=== PATIENT | male | born 1980 | race American Indian/Alaskan Native ===

== ENCOUNTER 2019-04-15 13:25 | Emergency (ER) | payer SELFPAY ==
[2019-04-15] MEDS ORDERED: BABY ASPIRIN PO ONE (14:13)
--- NOTE | 2019-04-15 14:38 | Emergency Department Report ---
ED Chest Pain HPI - General Chief Complaint: Chest Pain Stated Complaint: CHEST PAIN Time Seen by Provider: 04/15/19 14:30 Source: patient, EMS Mode of arrival: Stretcher Limitations: No Limitations - History of Present Illness Initial Comments: Patient is a 38 years old male with history of hypertension, diabetes and substance abuse. Patient presented to the ER complaining of left sided chest pain, pressure and tightness with no radiation. Patient stated that pain started 4 hours ago after he used cocaine approximately 4 hours ago. Patient also complaining of generalized weakness after he used cocaine. Patient denied any shortness of breath, fever or chills. MD Complaint: chest pain -: hour(s) Onset: during rest Pain Location: left chest Pain Radiation: none Severity scale (0 -10): 8 Quality: tightness, heaviness Consistency: constant - Related Data Home Medications Medication Instructions Recorded Confirmed Last Taken Metformin HCl [Glucophage] 1,000 mg PO BID 03/01/16 04/16/19 Unknown Previous Rx's Medication Instructions Recorded Last Taken Type Amoxicillin [Amoxicillin TAB] 875 mg PO BID 10 Days #20 tablet 05/18/18 Unknown Rx Butalb/Acetamin/Caff 50-325-40 1 tab PO Q6HR PRN #10 tab 05/18/18 Unknown Rx [Fioricet] Lisinopril [Zestril] 10 mg PO QDAY #30 tablet 05/18/18 Unknown Rx Allergies Allergy/AdvReac Type Severity Reaction Status Date / Time Fish Containing Products Allergy Hives Verified 05/18/18 08:11 Heart Score - HEART Score History: Moderately suspicious EKG: Non-specific Age: < 45 Risk factors: 1-2 risk factors Troponin: < normal limit HEART Score: 3 - Critical Actions Critical Actions: 0-3 pts:0.9-1.7%risk of adverse cardiac event.Candidate for discharge ED Review of Systems ROS: Stated complaint: CHEST PAIN Other details as noted in HPI Comment: All other systems reviewed and negative Constitutional: denies: chills, fever Respiratory: denies: cough, shortness of breath, SOB with exertion, SOB at rest, wheezing Cardiovascular: chest pain, palpitations Gastrointestinal: abdominal pain. denies: nausea, vomiting, diarrhea, constipation, hematemesis, melena, hematochezia Musculoskeletal: denies: back pain Neurological: weakness (generalized). denies: headache, numbness, paresthesias, confusion ED Past Medical Hx - Past Medical History Previous Medical History?: Yes Hx Hypertension: Yes Hx Diabetes: Yes Hx Seizures: Yes (non-compliant x 2yrs) Hx Asthma: No Hx COPD: No - Surgical History Past Surgical History?: Yes Additional Surgical History: Brain surgery -12yrs ago. 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 - Social History Smoking Status: Unknown if ever smoked Substance Use Type: Cocaine - Medications Home Medications: Home Medications Medication Instructions Recorded Confirmed Last Taken Type Metformin HCl [Glucophage] 1,000 mg PO BID 03/01/16 04/16/19 Unknown History Amoxicillin [Amoxicillin TAB] 875 mg PO BID 10 Days #20 tablet 05/18/18 04/16/19 Unknown Rx Butalb/Acetamin/Caff 50-325-40 1 tab PO Q6HR PRN #10 tab 05/18/18 04/16/19 Unknown Rx [Fioricet] Lisinopril [Zestril] 10 mg PO QDAY #30 tablet 05/18/18 04/16/19 Unknown Rx ED Physical Exam - General Limitations: No Limitations General appearance: alert, in no apparent distress - Head Head exam: Present: atraumatic, normocephalic, normal inspection - Eye Eye exam: Present: normal appearance, PERRL - ENT ENT exam: Present: normal exam, normal orophraynx, mucous membranes moist - Neck Neck exam: Present: normal inspection, full ROM. Absent: tenderness, meningismus, lymphadenopathy, thyromegaly - Respiratory Respiratory exam: Present: normal lung sounds bilaterally - Cardiovascular Cardiovascular Exam: Present: regular rate, normal rhythm, normal heart sounds - GI/Abdominal GI/Abdominal exam: Present: soft, normal bowel sounds. Absent: distended, tenderness, guarding, rebound, rigid, diminished bowel sounds, organomegaly, mass, bruit, pulsatile mass, hernia - Extremities Exam Extremities exam: Present: normal inspection, full ROM, normal capillary refill. Absent: tenderness, pedal edema, joint swelling, calf tenderness - Back Exam Back exam: Present: normal inspection, full ROM. Absent: CVA tenderness (R), CVA tenderness (L), muscle spasm, paraspinal tenderness, vertebral tenderness - Neurological Exam Neurological exam: Present: alert, oriented X3, CN II-XII intact, normal gait, reflexes normal - Psychiatric Psychiatric exam: Present: normal mood - Skin Skin exam: Present: warm, intact, normal color ED Course Vital Signs 04/15/19 04/15/19 04/15/19 13:37 14:41 15:15 Temperature Pulse Rate 105 H 94 H 93 H Respiratory 20 16 16 Rate Blood Pressure 137/79 Blood Pressure 128/79 147/78 [Left] O2 Sat by Pulse 95 96 95 Oximetry 04/15/19 04/15/19 04/15/19 15:46 16:32 19:40 Temperature 98.0 F Pulse Rate 89 74 71 Respiratory 16 16 16 Rate Blood Pressure Blood Pressure 153/78 142/98 130/70 [Left] O2 Sat by Pulse 94 95 93 Oximetry 04/15/19 04/16/19 04/16/19 20:34 01:00 07:00 Temperature 98.0 F 97.7 F 98.1 F Pulse Rate 71 60 62 Respiratory 16 16 18 Rate Blood Pressure Blood Pressure 130/70 118/72 116/79 [Left] O2 Sat by Pulse 96 94 98 Oximetry 04/16/19 04/16/19 04/17/19 14:34 20:00 01:07 Temperature 97.8 F 97.9 F Pulse Rate 85 83 79 Respiratory 18 16 18 Rate Blood Pressure Blood Pressure 104/77 126/67 119/80 [Left] O2 Sat by Pulse 99 95 95 Oximetry 04/17/19 08:48 Temperature 97.8 F Pulse Rate 71 Respiratory 18 Rate Blood Pressure Blood Pressure 117/84 [Left] O2 Sat by Pulse 95 Oximetry - Reevaluation(s) Reevaluation #1: 04/15/19 16:31 Patient stated that he is feeling depressed and he even having thoughts of hurting himself when he go back home. Patient does not have any plan at this moment. Patient put on 1013 and mental health assessment is requested. Reevaluation #2: 04/17/19 16:10 Patient has been assessed by our psychiatric team and they recommended patient to be discharged home to follow-up as an outpatient. Patient today's calm and cooperative and in no acute distress. Patient denied any thoughts of suicidal or homicidal ideation. Patient is medically and psychiatrically stable for discharge. ED Medical Decision Making - Lab Data Result diagrams: 04/15/19 14:50 04/15/19 14:50 Critical care attestation.: If time is entered above; I have spent that time in minutes in the direct care of this critically ill patient, excluding procedure time. ED Disposition Clinical Impression: Suicidal ideation, Chest pain, Cocaine abuse Disposition: - TO HOME OR SELFCARE Is pt being admited?: No Condition: Stable Instructions: Chest Pain (ED) Referrals: PRIMARY CARE, [Primary Care Provider] - 3-5 Days
--- NOTE | 2019-04-15 14:42 | XRay Report ---
CHEST PA AND LATERAL VIEWS INDICATION: chest pain. COMPARISON: None. FINDINGS: Support devices: None. Heart: Within normal limits. Lungs/Pleura: No acute pulmonary or pleural findings. IMPRESSION: 1. No significant abnormality. Signer Name: Bradley Turner MD Signed: 04/15/2019 2:37 PM Workstation Name: [id number]
[2019-04-15 14:54] LABS: Bilirubin,Urine NEG (Negative); Blood,Urine SM (Negative); Color,Urine Yellow (Yellow); Mucus,Urine FEW /HPF; Urobilinogen,Urine < 2.0 mg/dL (<2.0); WBC,Urine < 1.0 /HPF (0.0-6.0)
[2019-04-15 14:56] LABS: Amphetamine Screen,Urine PRESUMPTIVE NEGATIVE; Benzodiazepines Screen,Urine PRESUMPTIVE NEGATIVE; Cannabinoid Screen,Urine PRESUMPTIVE NEGATIVE; Methadone Screen,Urine PRESUMPTIVE NEGATIVE; Opiate Screen,Urine PRESUMPTIVE NEGATIVE
[2019-04-15 15:04] LABS: Basophils # (Auto) 0.1 K/mm3 (0.0-0.1); Basophils % (Auto) 0.8 % (0.0-1.8); Hematocrit 41.4 % (35.5-45.6); Lymphocytes # (Auto) 2.2 K/mm3 (1.2-5.4); Lymphocytes % (Auto) 20.2 % (13.4-35.0); Mean Corpuscular HGB Conc 34 % (32-34); Mean Corpuscular Volume 87 fl (84-94); Monocytes # (Auto) 0.7 K/mm3 (0.0-0.8); Monocytes % (Auto) 6.5 % (0.0-7.3); Platelet Count 161 K/mm3 (140-440); Red Blood Count 4.73 M/mm3 (3.65-5.03); Red Cell Distribution Width 13.8 % (13.2-15.2)
[2019-04-15 15:08] LABS: Cocaine Screen,Urine PRESUMPTIVE POSITIVE
[2019-04-15 15:25] LABS: BUN/Creatinine Ratio 14; Blood Urea Nitrogen 11 mg/dL (9-20); Hemolysis Index 3
--- NOTE | 2019-04-16 13:07 | Consultation ---
History of Present Illness - Reason for Consult Consult date: 04/16/19 Reason for consult: Mental Health Evaluation Requesting physician: ESTER MEJIA - Chief Complaint Chief complaint: " I did this to myself" - History of Present Psychiatric Illness This is a 38 y/o male that presents for evaluation. Patient presented to the ER for chest pain initially. While in ER patient patient reported that he was depressed and reported that he wanted to harm himself when he went home. Patient had been using cocaine. prior to admission he had been using cocaine and ETOH. He reports that he has been using on and off for approximately 18 years. He reports prior to last evening he had not used in 8 months. He reports that he is a binge user and that he used to go off for weeks or months when he was younger but over the last few years he has a , kids a good job so he has has only binged. he reports when this happens he is only gone maybe for the night. He reports that his use is maybe $60-$70. He reports that he feels that last night he may have used too much. He reports that he has only said he would harm himself typically to get sympathy, it not something he would really do..He is minimizing and trying rationalize...He needs to go to work in the morning at 6am and wants to discharge. We are trying to contact his for collateral information.. Stephany [phone] we left a voice mail. Medications and Allergies Allergies Allergy/AdvReac Type Severity Reaction Status Date / Time Fish Containing Products Allergy Hives Verified 05/18/18 08:11 Home Medications Medication Instructions Recorded Confirmed Last Taken Type Metformin HCl [Glucophage] 1,000 mg PO BID 03/01/16 03/01/16 Unknown History Amoxicillin [Amoxicillin TAB] 875 mg PO BID 10 Days #20 tablet 05/18/18 Unknown Rx Butalb/Acetamin/Caff 50-325-40 1 tab PO Q6HR PRN #10 tab 05/18/18 Unknown Rx [Fioricet] Lisinopril [Zestril] 10 mg PO QDAY #30 tablet 05/18/18 Unknown Rx Past psychiatric history - Past Medical History Past Medical History: diabetes, hypertension - past Psychiatric treatment and history Psych: Depression - Social History Social history: , lives with family, smoking Mental Status Exam - Vital signs Last Vital Signs Temp 98.1 F 04/16/19 07:00 Pulse 62 04/16/19 07:00 Resp 18 04/16/19 07:00 BP 116/79 04/16/19 07:00 Pulse Ox 98 04/16/19 07:00 - Exam Orientation: time, person Affect: depressed, anxious, agitated Mood: congruent with affect Thought Process: Circumstantial Perceptions: none Speech: normal rate and pattern Motor activity: normal Level of consciousness: alert Memory: Intact Interaction: irritable Results Result Diagrams: 04/15/19 14:50 04/15/19 14:50 Abnormal lab results 04/15/19 04/15/19 Range/Units 14:50 14:50 WBC 11.1 H (4.5-11.0) K/mm3 Seg Neutrophils % 72.5 H (40.0-70.0) % Seg Neutrophils # 8.1 H (1.8-7.7) K/mm3 Glucose 199 H (75-100) mg/dL All other labs normal. Assessment and Plan Assessment and plan: Assessment and Plan MDD We discussed the situation fully with the patient. He is stable and wants to discharge. We will start patient on lexapro 10 mg PO daily cocaine use disorder...patient is stable and has been resting well,. We discussed treatment options. Patient has done rehab before and reports that he stopped use for 3 years. We will follow-up again tomorrow. Anxiety...lexapro Will staff with Dr. Hola Blanco MD
[2019-04-16] MEDS ORDERED: LEXAPRO PO ONE (13:22)
[2019-04-17] MEDS ORDERED: LEXAPRO PO ONE (09:00)
--- NOTE | 2019-04-17 10:04 | Progress Note ---
Subjective - Reason for Consult Consult date: 04/17/19 Reason for consult: Psychiatry Follow-up - Chief Complaint Chief complaint: "I have to stay clean" 38 y.o. AA male who presented to the ER for chest pain, depression, and SI's. Today the patient was calm and cooperative during the assessment. Per collateral information from the patient's Stephany Nix at [phone], she stated that her had a serious substance abuse problem. She stated that he overdosed on pills several months ago because he was "high." She stated that his mood is totally different when he isn't doing "drugs." She stated that she want her to return home and she will be his support system. She stated that he will follow up with outpatient psy/rehab services once discharged. The patient denies SI/HI's and AVH's. He denies any side effects from his medication. Mental Status Exam - Vital signs Last Vital Signs Temp 97.9 F 04/16/19 20:00 Pulse 79 04/17/19 01:07 Resp 18 04/17/19 01:07 BP 119/80 04/17/19 01:07 Pulse Ox 95 04/17/19 01:07 - Exam Narrative exam: MSE: Appearance: calm, cooperative Behavior: regular eye contact Speech: regular rate and low tone Mood: "okay" Affect: [id number] to mood Thought Process: logical Thought Content: denies SI/HI's and AVH's Motor Activity: lying in bed Cognition: A/O x 3 Insight: fair Judgment:fair Assessment and Plan Impression: MDD. Substance Use DO (cocaine). Hx of Alcohol Abuse. Today the patient was calm and cooperative during the assessment. The patient is no threat to self. DDx: Substance Induced Mood DO Recommendations/Plan: Rescind 1013. Continue Lexapro 5 mg PO daily for depression. Discussed possible suicidality/medication induced elmira with the patient reference Lexapro, he verbalized understanding. Discussed the importance to abstain from recreational drug use and alcohol consumption with the patient, he verbalized understanding. Dipso: The patient can follow up with [facility] for outpatient psy/rehb services. Will staff with Dr Estela Blanco.
[2019-04-17 16:28] VITALS: BP 123/75
[2019-04-18] MEDS ORDERED: LEXAPRO PO SCH (10:00)
== END 2019-04-17 17:00 | disposition home or self-care (01) ==
LOC: ED 13:25 → EEVIPCON 13:25 → ED 04-17 17:00
DX: R07.89 Other chest pain (principal); F14.10 Cocaine abuse, uncomplicated; I10 Essential (primary) hypertension; E11.9 Type 2 diabetes mellitus without complications; Z79.84 Long term (current) use of oral hypoglycemic drugs; Z91.013 Allergy to seafood; Z79.899 Other long term (current) drug therapy
CPT/HCPCS: 36415; 71046; 80048; 80307; 80320; 81001; 84484; 85025; 93005; 93010; 99285; G0480